=== PATIENT | male | born 1965 | race Caucasian/White ===

== ENCOUNTER 2016-10-03 12:28 | Day surgery (SDC) | payer BC ==
[~2016-10-03 12:28] MED LIST: Midazolam 1 MG/ML 2 ML SDV IV ONE; Midazolam 1 MG/ML 2 ML SDV ONE; Propofol 200 MG/20 ML SDV IV ONE; Propofol 200 MG/20 ML SDV ONE; fentaNYL 100 MCG/2 ML SDV IV ONE; fentaNYL 100 MCG/2 ML SDV ONE
[2016-10-03] MEDS ORDERED: Propofol 200 MG/20 ML SDV ONE (12:29)
[2016-10-03] MEDS ORDERED: Lactated Ringers 1,000 ML IV SCH (12:30)
[2016-10-03] MEDS ORDERED: Sodium Chloride 0.9% 5 ML Syringe FLUSH PRN (12:30)
--- NOTE | 2016-10-03 13:14 | PCM.PN ---
- General Info Date of Service: 10/03/16 - Review of Systems Systems Review Comment:: 51 y/o male here for his initial screening colonoscopy. He denies any known family history of colon cancer and has had no recent symptoms. He is medically stable to proceed with no significant changes in his health status since his last physical exam. I have discussed the proposed colonoscopy with the patient. Risks such as but not limited to bleeding and GI injury discussed and he agrees to proceed. - Patient Data Vitals - Most Recent: Last Vital Signs Temp 97.5 F 10/03/16 12:43 Pulse 77 10/03/16 12:43 Resp 16 10/03/16 12:43 BP 117/81 10/03/16 12:43 Pulse Ox 95 10/03/16 12:43 Weight - Most Recent: 97.749 kg Med Orders - Current: Current Medications Lactated Ringer's (Ringers, Lactated) 1,000 mls @ 50 mls/hr IV ASDIRECTED NEDRA Sodium Chloride (Syrex Flush) 5 ml FLUSH Q8HR PRN PRN Reason: Keep Vein Open Discontinued Medications Fentanyl (Sublimaze) Confirm Administered Dose 100 mcg .ROUTE .STK-MED ONE Stop: 10/03/16 11:48 Midazolam HCl (Versed 1 Mg/Ml) Confirm Administered Dose 2 mg .ROUTE .STK-MED ONE Stop: 10/03/16 11:47 Propofol (Diprivan 20 Ml) Confirm Administered Dose 200 mg .ROUTE .STK-MED ONE Stop: 10/03/16 11:48 - Problem List Review Problem List Initiated/Reviewed/Updated: Yes - My Orders Last 24 Hours: My Active Orders 10/03/16 12:30 Patient to Empty Bladder [RC] ASDIRECTED Peripheral IV Care [RC] . DIRECTED Verify Patient Consent Obtain [RC] ASDIRECTED Lactated Ringers [Ringers, Lactated] 1,000 ml IV ASDIRECTED Sodium Chloride 0.9% [Syrex Flush] 5 ml FLUSH Q8HR PRN Peripheral IV Insertion Adult [OM.PC] Routine 10/03/16 Breakfast Nothing Per Oral Diet [DIET] - Assessment Assessment:: Colon Cancer Screening - Plan Plan:: Colonoscopy
--- NOTE | 2016-10-03 13:49 | PCM.OPNOTE ---
- General Post-Op/Procedure Note Date of Surgery/Procedure: 10/03/16 Operative Procedure(s): Colonoscopy Findings: Normal Colon Pre Op Diagnosis: Colon Cancer Screening Post-Op Diagnosis: Normal Colon Anesthesia Technique: MAC Primary Surgeon: Regulo Flores Pathology: none Output, Urine Amount: 0 EBL in mLs: 0 Complications: None Condition: Good
[2016-10-03 15:31] VITALS: BP 109/77
--- NOTE | 2016-10-03 20:49 | OR ---
DATE OF SURGERY: 10/03/2016 SURGEON: Regulo Flores MD REFERRING PROVIDER: COLTON Nolasco PREOPERATIVE DIAGNOSIS: Colon cancer screening. POSTOPERATIVE DIAGNOSIS: Normal colon. OPERATION PERFORMED: Colonoscopy. INDICATIONS FOR SURGERY: This 51-year-old male presents today for his initial screening colonoscopy. He denies any recent colon symptoms and also denies any family history of colon cancer. FINDINGS: The patient's colon appears normal. DESCRIPTION OF PROCEDURE: The patient was taken to the operating room. He was given intravenous sedation and with him in the left lateral decubitus position, digital rectal exam was performed showing no rectal masses. The Olympus colonoscope was inserted into the rectum. Retroflexed examination of the rectal canal was performed. The scope was then carefully advanced under direct visualization through the entire length of the colon until the cecum was reached. Cecal acquisition was confirmed by noting the normal internal cecal anatomy and identifying the light to transilluminate the abdominal wall in the right lower quadrant. The ileocecal valve was identified and cannulated, and the terminal ilium appeared unremarkable. The scope was then slowly withdrawn sequentially re-examining the colonic segments until the entire colon and rectum have been fully examined. The scope was then removed, and the patient was taken from the operating room in satisfactory condition. ESTIMATED BLOOD LOSS: Zero. COMPLICATIONS: None. PROGNOSIS: Good. /[id number]/MODL
--- NOTE | 2016-10-04 10:24 | PROC ---
PROVIDER: Regulo Flores MD NO DICTATION /[id number]/MODL
--- NOTE | 2016-10-08 08:53 | PCM48HPAN ---
Post Anesthesia Note - COMMENTS/OBSERVATIONS Free Text/Narrative:: The sedation record is off by 1 hour, with a start time to be at 1313 and a end time of 1447. Aimee Singer [employer]
== END 2016-10-03 15:05 | disposition home or self-care (01) ==
LOC: KA.SDS 12:28
PROVIDERS: ATTEND Surgery
DX: Z12.11 Encounter for screening for malignant neoplasm of colon (principal); Z88.1 Allergy status to other antibiotic agents; Z91.013 Allergy to seafood; Z79.899 Other long term (current) drug therapy
CPT/HCPCS: 45378; J2250; J2704; J3010; J7120

== ENCOUNTER 2021-06-01 19:15 | Emergency (ER) | payer BC ==
[2021-06-01] MEDS: diphenhydrAMINE 50 MG/ML SDV IVPUSH ONE (19:25)
[2021-06-01] MEDS: Famotidine 20 MG/2 ML SDV IVPUSH ONE (19:26)
[2021-06-01] MEDS: methylPREDNISolone Sodium Succinate 125 MG/2 ML SDV IVPUSH ONE (19:26)
[2021-06-01] MEDS: Sodium Chloride 0.9% 10 ML Syringe FLUSH PRN (19:27)
[2021-06-01 20:33] VITALS: PULSE 87
[2021-06-01 20:36] VITALS: BP 138/102
== END 2021-06-01 20:20 | disposition home or self-care (01) ==
LOC: KA.ED 19:15
DX: T78.1XXA Other adverse food reactions, not elsewhere classified, initial encounter (principal); I10 Essential (primary) hypertension; E78.00 Pure hypercholesterolemia, unspecified; Z91.013 Allergy to seafood; Z91.010 Allergy to peanuts; Z88.5 Allergy status to narcotic agent; Z79.899 Other long term (current) drug therapy
CPT/HCPCS: 96374; 96375; 99283-25; 99284; J1200; J2930; J3490